=== PATIENT | female | born 1980 | race Hispanic/Latino ===

== ENCOUNTER 2017-10-18 20:24 | Emergency (ER) | payer OTHER, SELFPAY | END 2017-10-18 21:07 | disposition home or self-care (01) | LOC: ERS 20:24 | DX: O99.513 Diseases of the respiratory system complicating pregnancy, third trimester (principal); J00 Acute nasopharyngitis [common cold]; Z3A.33 33 weeks gestation of pregnancy | CPT/HCPCS: 99283 ==

== ENCOUNTER 2017-10-24 20:37 | Emergency (ER) | payer OTHER ==
[2017-10-24 21:09] LABS: Bilirubin Negative (Negative); Blood, Urine Negative (Negative); Clarity CLEAR (Clear); Glucose, Urine (Dipstick) Negative (Negative); Leukocyte Negative (Negative); Nitrite Negative (Negative); Protein, Urine (Dipstick) Negative (Neg-Trace); Specific Gravity, Urine 1.016 (1.002-1.036)
[2017-10-24] MEDS ORDERED: Acetaminophen 500 MG TAB ONE (21:47)
== END 2017-10-24 22:01 | disposition home or self-care (01) ==
LOC: ERS 20:37
DX: O99.89 Other specified diseases and conditions complicating pregnancy, childbirth and the puerperium (principal); R51 Headache; O09.513 Supervision of elderly primigravida, third trimester; Z3A.39 39 weeks gestation of pregnancy
CPT/HCPCS: 81003; 99283

== ENCOUNTER 2017-10-27 06:09 | Inpatient (IN) | payer OTHER, SELFPAY ==
[2017-10-27] MEDS ORDERED: NS w/ Oxytocin 10 units 500 ML ONE (07:20)
[2017-10-27] MEDS ORDERED: NS w/ Oxytocin 10 units 500 ML IV SCH (07:55)
[2017-10-27] MEDS ORDERED: Misoprostol 200 MCG TAB PR PRN (07:55)
[2017-10-27] MEDS ORDERED: HYDROcodone/Acetaminophen 5/325 mg Tablet PO PRN ×3 (07:55→13:57)
[2017-10-27] MEDS ORDERED: Promethazine HCl 25 MG/ML VIAL IM PRN ×2 (07:55→13:57)
[2017-10-27] MEDS ORDERED: Acetaminophen 500 MG TAB PO PRN (07:55)
[2017-10-27] MEDS ORDERED: Lidocaine 1% (PF) 30 ML VIAL SC PRN (07:55)
[2017-10-27] MEDS ORDERED: NS / Oxytocin 40 units/1000ml 1,000 ML IV PRN (07:55)
[2017-10-27] MEDS ORDERED: Methylergonovine 0.2 MG/ML VIAL IM PRN (07:55)
[2017-10-27] MEDS ORDERED: Ondansetron HCl/PF 4 MG/2 ML Vial IVP PRN (07:55)
[2017-10-27] MEDS ORDERED: Diphenoxylate HCl/Atropine Tablet PO PRN (07:55)
[2017-10-27] MEDS ORDERED: Carboprost 250 MCG/ML AMP IM PRN (07:55)
[2017-10-27] MEDS ORDERED: Lactated Ringer's 1,000 ML IV SCH (07:55)
[2017-10-27] MEDS ORDERED: Ibuprofen 800 MG TAB PO PRN (07:55)
[2017-10-27 08:30] VITALS: BMI 35.7
[2017-10-27 09:24] LABS: Hemoglobin 10.8 g/dL (12.0-16.0); Mean Corpuscular HGB CONC 33.4 g/dL (32.0-36.0); Mean Corpuscular Hemoglobin 27.8 pg (27.0-31.0); Mean Corpuscular Volume 83.2 fl (81.0-99.0); Mean Platelet Volume 10.1 fL (7.4-10.4); Platelet Count 162 thou/uL (130-400); Red Blood Cell (RBC) Count 3.89 mill/uL (4.20-5.40); White Blood Cell (WBC) Count 6.4 thou/uL (4.8-10.8)
--- NOTE | 2017-10-27 09:58 | PDOC.LDHP ---
Labor and Delivery H&P Chief complaint: scheduled induction HPI: 37yo at 39w2d by LMP here for elective IOL. some painful ctx. ADKINS resolved with fiorcet yesterday. Current gestational age (weeks): 39 Due date: 11/01/17 Dating criteria: last menstrual period Grav: 4 Para: 3 OB History Details: AMA s/p neg NIPT Current complications: none Abnormal US findings: No Past Medical History: denies Current medications: pre-trini vitamins, other (fiorcet prn) Previous surgical history: none Allergies/Adverse Reactions: Allergies Allergy/AdvReac Type Severity Reaction Status Date / Time No Known Allergies Allergy Verified 10/27/17 08:17 Social history: none - Physical Exam Vital signs reviewed and normal: yes General: NAD Heart: RRR Lungs: CTAB Abdomen: gravid Extremeties: no edema FHT: category 1 [place] contractions every: q 3min - Vaginal Exam cm dilated: 3 Effacement: 75% Station: -2 (arom clear) - OB Labs RH: positive Antibody Screen: negative HIV: negative RPR: negative HEPSAg: negative 1 hour GCT: negative GBS: negative Urine drug screen: negative Rubella: immune - Assessment L&D Assessment: elective induction at term - Plan Plan: admit to L&D, labor augmentation if indicated, informed consent obtained
[2017-10-27] MEDS ORDERED: DISCONTINUE ALL PREVIOUS NARCOTICS FS SCH (10:00)
[2017-10-27] MEDS ORDERED: Bupivacaine 0.5% 20 ML, fentaNYL Citrate/PF 400 MCG in Sodium Chloride 0.9% 72 ML EPIDURAL SCH (10:00)
[2017-10-27 10:01] LABS: HBSAg Index 0.15 S/CO (0-0.99); Hep B Surf Ag Non-Reactive S/CO (NonReactive); Syphilis Antibody Nonreactive (Nonreactive); Syphilis Antibody Index 0.05 S/CO (<1.00 Non-Reactive)
--- NOTE | 2017-10-27 10:59 | PDOC.OPDEL ---
OB Operative/Delivery Note Delivery Dr/Surgeon: Stanislav Assist: n/a Pre-Delivery Diagnosis: elective induction Procedure/Post Delivery Dx: spontaneous vaginal delivery Weeks gestation: 39 Anesthesia: none - Findings A Sex: male - 1 min: 8 - 5 min: 9 - Additional Findings/Plan Placenta delivered: spontaneous Repaired Obstetrical Laceration: none Estimated blood loss: 100 Post delivery plan: routine recovery
[2017-10-27] MEDS ORDERED: Ketorolac Tromethamine 30 MG/ML VIAL IVP SCH (11:00)
[2017-10-27] MEDS ORDERED: Adacel (T-DAP) 0.5 ML VIAL IM ONE (13:57)
[2017-10-27] MEDS ORDERED: Lanolin Ointment 7 GM TUBE TOP PRN (13:57)
[2017-10-27] MEDS ORDERED: NS / Oxytocin 40 units/1000ml 1,000 ML IV SCH (13:57)
[2017-10-27] MEDS ORDERED: Bisacodyl 10 MG SUPP PR PRN (13:57)
[2017-10-27] MEDS ORDERED: Preparation H Ointment 28 GM TUBE PR PRN (13:57)
[2017-10-27] MEDS ORDERED: Milk Of Magnesia 30 ML UDCUP PO PRN (13:57)
[2017-10-27] MEDS ORDERED: Zolpidem Tartrate 5 MG TAB PO PRN (13:57)
[2017-10-27] MEDS ORDERED: diphenhydrAMINE 25 MG CAP PO PRN (13:57)
[2017-10-27] MEDS ORDERED: Benzocaine/Menthol 20-0.5% 60 ML CAN TOP PRN (13:57)
[2017-10-27] MEDS: Ibuprofen 800 MG TAB PO SCH ×2 (14:34→21:33)
[2017-10-27] MEDS: Ferrous Sulfate 325 MG TAB PO SCH (18:10)
[2017-10-27] MEDS: Docusate Calcium (SURFAK) 240 MG CAP PO SCH (21:33)
[2017-10-28] MEDS: Ibuprofen 800 MG TAB PO SCH ×2 (04:52→13:30)
[2017-10-28 05:53] LABS: Hemoglobin 9.3 g/dL (12.0-16.0); Mean Corpuscular HGB CONC 33.2 g/dL (32.0-36.0); Mean Corpuscular Hemoglobin 27.8 pg (27.0-31.0); Mean Corpuscular Volume 83.7 fl (81.0-99.0); Mean Platelet Volume 10.2 fL (7.4-10.4); Platelet Count 154 thou/uL (130-400); RBC Distribution Width 13.8 % (11.5-14.5); Red Blood Cell (RBC) Count 3.36 mill/uL (4.20-5.40); White Blood Cell (WBC) Count 5.2 thou/uL (4.8-10.8)
--- NOTE | 2017-10-28 08:33 | PDOC.PP ---
Post Progress Note Post Day #: 1 PO intake tolerated: yes Flatus: yes Ambulation: yes Vital Signs (12 hours) Temp Pulse Resp BP BP 10/28/17 05:00 98.0 F 63 18 109/64 10/28/17 00:00 98.8 F 68 18 104/55 L Weight Weight 183 lb - Physical Examination General: NAD Respiratory: non-labored breathing Abdominal: no distention, appropriately TTP Fundus firm & at: umb Skin: no rash Neurological: no gross focal deficits Psychiatric: normal affect Result Diagrams: 10/28/17 05:18 Additional Labs: Post Labs Blood Type A POSITIVE 10/27/17 08:58 Hep Bs Antigen Non-Reactive S/CO (NonReactive) 10/27/17 08:58 - Assessment/Plan PPD1 s/p TSVD Doing well bleeding appropriate Breast and bottle feeding Rh pos RImm DC home FU 6 wk
[2017-10-28] MEDS ORDERED: Prenatal Vitamin 1 TAB PO SCH (09:00)
[2017-10-28] MEDS: Ferrous Sulfate 325 MG TAB PO SCH (09:09)
[2017-10-28] MEDS: Docusate Calcium (SURFAK) 240 MG CAP PO SCH (09:09)
[2017-10-28 11:35] VITALS: BP 121/73; TEMP 98.7
== END 2017-10-28 15:20 | disposition home or self-care (01) | DRG 775 ==
LOC: L&D 06:09 → 3SW 13:44
PROVIDERS: ADMIT Student in an Organized Health Care Education/Training Program; ATTEND Student in an Organized Health Care Education/Training Program
PROC: 10E0XZZ Delivery of Products of Conception, External Approach (ICD-10-PCS; principal; 2017-10-27)
PROC: 10907ZC Drainage of Amniotic Fluid, Therapeutic from Products of Conception, Via Natural or Artificial Opening (ICD-10-PCS; 2017-10-27)
PROC: 3E033VJ Introduction of Other Hormone into Peripheral Vein, Percutaneous Approach (ICD-10-PCS; 2017-10-27)
DX: O99.89 Other specified diseases and conditions complicating pregnancy, childbirth and the puerperium (principal); R51 Headache; Z3A.39 39 weeks gestation of pregnancy; Z37.0 Single live birth
CPT/HCPCS: 36415; 85027; 86780; 86850; 86900; 86901; 87340; 90715; J0595; J1885; J3010; J3490; J7050

== ENCOUNTER 2025-05-14 18:45 | Emergency (ER) | payer SELFPAY ==
[2025-05-14] MEDS ORDERED: levETIRAcetam 500 MG (5 mL) VIAL ONE (19:13)
[2025-05-14 19:15] LABS: #Basophils 0.03 10x3/uL (0.0-0.2); #Eosinophils 0.17 10x3/uL (0.0-0.7); #Monocytes 0.51 10x3/uL (0.11-0.59); #Neutrophils 4.42 10x3/uL (1.40-6.50); %Basophils 0.4 % (0.0-1.0); %Eosinophils 2.0 % (0.0-10.0); %Lymphocytes 38.1 % (21.0-51.0); %Monocytes 6.1 % (0.0-10.0); %Neutrophils 53.2 % (42.0-75.0); Hematocrit 39.5 % (36.0-47.0); Hemoglobin 12.7 g/dL (12.0-16.0); Mean Corpuscular Hemoglobin 27.8 pg (27.0-31.0); Mean Corpuscular Volume 86.4 fL (78.0-98.0); Platelet Count 202 10x3/uL (130-400); Red Blood Cell (RBC) Count 4.57 mill/uL (4.20-5.40); White Blood Cell (WBC) Count 8.32 10x3/uL (4.8-10.8)
[2025-05-14 19:38] LABS: Acetaminophen Less than 10 mcg/mL (Less than 10); Salicylate Less than 8.0 mg/dL (Less than 8.0)
[2025-05-14 19:39] LABS: ALT (SGPT) 31 U/L (Less than 34); AST (SGOT) 21 U/L (11-34); Albumin 4.4 g/dL (3.1-4.5); Alkaline Phosphatase 68 U/L (40-110); Anion Gap 17 mmol/L (10-20); BUN (Urea Nitrogen) 10 mg/dL (7.0-18.7); Bilirubin, Total 0.4 mg/dL (0.3-1.2); CK (CPK) 87 U/L (29-168); Calc. Creatinine Clearance 0 mL/min (70-130); Calcium 9.5 mg/dL (7.8-10.44); Carbon Dioxide 20 mmol/L (22-29); Chloride 110 mmol/L (98-107); Globulin 3.0 g/dL (2.4-3.5); Glucose 132 mg/dL (70-105); Lipase 58 U/L (8-78); Potassium 3.9 mmol/L (3.5-5.1); Sodium 143 mmol/L (136-145)
[2025-05-14 20:09] LABS: BHCG - Serum Negative (NEGATIVE); Pregs Control Background? CLEAR/WHITE (CLR/WHITE); Pregs Control Bar Appear? YES (CONTROL BAR)
[2025-05-14 22:23] LABS: Bacteria/HPF None Seen HPF (None Seen); CAUTI Indications for Culture Alt mental st,lethar; Glucose, Urine (Dipstick) Normal (Negative); Leukocyte Negative Leu/uL (Negative); Protein, Urine (Dipstick) Negative (Neg-Trace); RBC/HPF 0-3 HPF (0-3); Specific Gravity, Urine 1.009 (1.002-1.036); WBC/HPF None Seen HPF (0-3)
[2025-05-14 22:24] LABS: Urine Culture Reflex No No
[2025-05-14 22:28] LABS: Cocaine Metabolite Screen Negative (Negative); THC/Cannabinoid Screen Negative (Negative); Tricyclic Screen Negative (Negative)
== END 2025-05-14 23:40 | disposition short-term general hospital (02) ==
LOC: ERS 18:45
DX: G40.901 Epilepsy, unspecified, not intractable, with status epilepticus (principal)
CPT/HCPCS: 70450; 71045; 80306; 80307; 81001; 82140; 82550; 83605; 83690; 84146; 84443; 84484; 84703; 85025; 93005; 96365; 96366; 96375; J1953; J2060